=== PATIENT | male | born 1950 | race Caucasian/White ===

== ENCOUNTER 2024-03-14 10:31 | Inpatient (IN) | payer OTHER, SELFPAY ==
[2024-03-14] VITALS (18 sets, daily range): BP systolic 77–130; BP diastolic 45–71; BMI 20.5
--- NOTE | 2024-03-14 08:38 | W.PN.CARDCBS ---
Today's Communication / Plan
-
LHC/RHC today
CTS consult for CAB/AVR
Pulm consult- preop workup including PFTs
GI consult- UGIB/H. Pylori management
HF consult
Impression / Plan
-
This is the consultation summary.
See scanned consult note.
PCP: Estela Chi DO
CDY: Micheal Dasilva DO
HPI: 74 y/o white male, complex medical history including medical non compliance and lost to cardiology followup since 2020. PMH includes CAD with occlusive disease of RCA, LAD, mod LCx, referred for CABG but ultimately refused the surgery, chronic
systolic HFrEF 25-30% (previously recovered to 45-50% at last echo), moderate MR, , ICM, HTN, HLD, severe COPD/emphysema with parapneumonic effusion with PNA s/p VATS decortication (07/2023), persistent right sided consolidation, chronic tobacco
abuse.
Admitted to [facility] on 03/07 with acute on chronic anemia and melena. Initial hgb 6.9, transfused with Hgb up to 9.0 currently. EGD on 03/09 with large duodenal ulcer. GI approved use of aspirin for cardiac issues.
He also admits to chronic atypical angina, worse on exertion, as well as severe dyspnea, progressive over the last month. HS Troponins were elevated 155 but flat and had normal CPK levels. Echo on 03/08 with mod to sev decreased LVSF, EF 25-30%,
mild-mod MR, mod TR, mod but likely underestimated d/t dec LVEF, PG/MG /, JASEN 1.27cm2. Pt is now requesting CABG and would like to have workup.
His social situation is such that he has no license, no car, and gets around on an electric tricycle, has no friends/family for support or to help drive him to appointments/studies.
Transferred today for [facility], as well as inpatient CTS workup including Pulmonary consult for inpt PFTs as well as continued GI monitoring.
IMPRESSION/PLAN:
Severe Chronic CAD/Progressive atypical angina/Moderate MR/
had refused CABG in 2020, now requesting surgery
LHC/RHC today
consult CTS/Dr. Yañez for inpatient workup for CAB, +/- AVR
continue aspirin- OK per GI
will follow with Dr. Dasilva at the [facility] office
Chronic systolic HFrEF 25-30%/ICM
EF decreased from 45-50% over the last few years, with progressive valve disease
severe dyspnea certainly multifactorial but would continue max vilma GDMT
losartan 25mg/d, carvedilol 3.125/bid, furosemide 20/q48h, KCL 20/d
heart failure team consult
monitor I/O, lytes
would consider eventual ICD therapy if revascularization does not help EF
Severe COPD/Emphysema
complex pulmonary issues coupled with chronic tobacco abuse
cessation has been discussed
will need inpt PFTs and pulmonary workup prior to cardiac surgery
is not on O2 at this time but will continue minineb, MDI, supplemental O2 as needed
budesonide 0.5/MN BID, tiotropium 18mcg/d prn, albuterol MN prn
finished course of prednisone today, has mild leukocytosis but cultures have been negative, likely from CS
UGIB/Duodenal ulcers/acute on chronic anemia/melena
lowest Hgb 6.9- now up to 9.6 after 3u PRBC transfused
EGD with ulcers, biopsy + H. Pylori
OK for aspirin per GI at [facility]
will need GI consult for continued care/input as pt will need blood thinners, dapt, etc.
GI at [facility] has pt on quadruple therapy for 14 day course- protonix 40/bid, amoxicillin 1g Q12h, clarithromycin 500/bid and bismuth
will need outpt GI followup in 6 weeks and repeat stool antigen in 3-4 months to check for H. Pylori eradication
Dr. Rocio Ervin @[facility]
HTN- monitor trends on current therapy
HLD- check lipid profile, continue statin therapy with lipitor 40/d
BPH- continue tamsulosin
Progress Note - Cover Inspector
Subjective
Date of Service: March 14, 2024
[2024-03-14 14:16] LABS: ACT-LR - POC 173 Seconds (116-155)
--- NOTE | 2024-03-14 14:55 | CONSULT.CT ---
Consultation
-
Date/Time Consultation Requested: 03/14/24 1445
Date/Time Consultation Performed: 03/14/24 1500
Requesting Provider: Paulo Ortiz MD
Performing Provider: Flash HAMILTON for Dr. Yañez
Reason for Consultation: CABG/AVR eval
Patient History
Physicians
Family Physician: Estela Chi DO
Outpatient Professor Of Theatre: Dr. Leobardo Wright
Inpatient Professor Of Theatre: Paulo Ortiz
History of Present Illness
74-year-old male with past medical history significant for medical noncompliance and loss to cardiology follow-up since 2020 for CAD and occlusive RCA disease, LAD, and moderate left circumflex, chronic systolic heart failure with reduced ejection
fraction, moderate MR, AAS, ischemic cardiomyopathy, HTN, HLD, severe COPD/emphysema with parapneumonic effusion with pneumonia status post VATS decortication in 2022, persistent right-sided consolidation. He was referred for a CABG but ultimately
refused at the time.
Patient presented to [facility] on 03/07 with dizziness, acute on chronic anemia and melena. He was found to have a hemoglobin of 6.9 and was transfused and repeat hemoglobin went up to 9.0. At that time he had an EGD on 03/09 and a large
duodenal ulcer was found. Patient was admitted to ongoing chronic atypical angina that is worsened with exertion along with severe dyspnea over the last month. At [facility] high sensitive troponins were elevated. An echocardiogram showed
moderate to severely decreased ejection fraction with an EF of 25 to 30%, moderate MR, moderate TR, and moderate . Patient was then transferred to [facility] for a left heart cath and CABG evaluation.
Past Medical History
Past Medical History: BPH, COPD (emphysema), GERD, HTN, [place] and Valvular Disease
gastric ulcers/ UGIB/ H/Pylori
Past Surgical History
Past Surgical History: Orthopedic
VATs in 2022
Dental History
Multiple broken teeth and dental infections. Does not follow dentist regularly
Family History
Mother: at Age
Father: at Age (76) and Cause of (Cancer, [place]. )
Family Medical History: CAD and Cancer
Social History
Alcohol: Occasional
Drug: None
Tobacco: Smoker (1/2PPD)
Personal: Single
Living: Alone
Employment: Retired
Allergies
Allergy/AdvReac Type Severity Reaction Status Date / Time
No Known Allergies Allergy Unverified 03/14/24 12:00
Home Medications
�Medication �Instructions �Recorded �Confirmed �Type
atorvastatin 40 mg tablet 40 mg PO QPM #1 tab 01/14/21 03/14/24 Rx
carvedilol 3.125 mg tablet 3.125 mg PO BID 01/14/21 03/14/24 History
quetiapine 200 mg tablet 200 mg PO HS 01/14/21 03/14/24 History
albuterol sulfate 90 mcg/actuation 2 puff inhalation Q6H PRN wheezing 03/14/24 03/14/24 History
aerosol inhaler
aspirin 81 mg tablet 81 mg PO DAILY 03/14/24 03/14/24 History
tamsulosin 0.4 mg capsule 0.4 mg PO HS 03/14/24 03/14/24 History
tiotropium bromide 18 mcg capsule 1 cap inhalation DAILY 03/14/24 03/14/24 History
with inhalation device
Review of Systems
-
History Source: Patient
General: Reports Fatigue
Respiratory: Reports SOB and Cough
Cardiac: Reports Chest Pain, CAD, Known Vascular Disease and Edema
Abdomen/GI: Reports Abdominal Pain, Indigestion, Nausea, Vomiting and Black Stools
: Reports No Symptoms
Musculoskeletal: Reports Arthralgias and Joint Pain
Skin: Reports Itching
Neurological: Reports No Symptoms
Vascular: Reports No Symptoms
Physical Exam
Vital Signs
Temp 97.0 F 03/14/24 14:41
Temp route: Oral 03/14/24 14:41
Pulse 73 03/14/24 12:45
Resp Rate 12 03/14/24 12:45
Blood pressure 116/64 03/14/24 11:56
Blood pressure extremity used: Right upper arm 03/14/24 14:41
Position: Lying 03/14/24 14:41
MAP (cuff-Sergei Monitor) 82 03/14/24 11:56
SaO2 97 03/14/24 12:45
Oxygen Mode of Delivery Room air 03/14/24 14:41
Can the patient verbally communicate their pain? Yes 03/14/24 14:41
Actual Weight 66.5 kg 03/14/24 10:36
Body Mass Index (BMI) 20.5 03/14/24 10:36
Labs
Abnormal Lab Results
03/14/24
14:12
POC ACT Low Range 173 H
Exam
General: No Apparent Distress and Comfortable
HEENT: PERRLA
Respiratory: Clear
Cardiac: S1/S2 and Murmur
GI: Flat
Rectal: Deferred by Provider
Skin: Warm and Dry
Neuro: AO x 3
Lymph: No Lymphadenopathy
Psych: Calm
Assessment / Plan
-
74-year-old male with past medical history above presented to [facility] on 03/07 with anemia and melena. He was noted to have worsening angina, dyspnea, and elevated troponins and was taken to [facility] for CABG eval.
#CAD
#Moderate MR, TR, and
- Patient's case will be discussed with attending physician. Further details regarding intervention will be determined after attending physicians full evaluation
- Routine preoperative cardiothoracic surgery orders will be initiated.
- STS risk stratification score will be calculated after preoperative testing is complete
- Obtain TTE images from 03/08
#Emphysema
- Obtain PFTs
#Chronic systolic HFrEF 25-30%/ICM
-EF decreased from 45-50% over the last few years, with progressive valve disease
Data Reviewed
-
EKG: Tracing Personally Visualized and interpreted
Office Engineer: Report Reviewed by me
Labs: Labs Reviewed by me and Discussed with Physician
Old Records: Requested
--- NOTE | 2024-03-14 14:56 | ITS.CL.CATH ---
Reading Teacher - Catheterization
Cardiac Catheterization
Procedure Report:
RIGHT AND LEFT HEART CATHETERIZATION
Date of Procedure: March 14, 2024
Primary Care Physician: Dr. Christopher Chi
Primary Carton Forming Machine Adjuster: Dr. Devendra Castañeda
Procedures performed:
1: Coronary angiography
2: Left ventriculography
3: Right heart catheterization
INDICATION: The patient is a 74-year-old man with a past medical history significant for medical noncompliance, poor insight to his medical condition, ongoing heavy smoking, severe COPD status post VATS thoracotomy in July 2023 at [facility] for a loculated parapneumonic effusion, severe coronary artery disease with surgical obstructive disease by cardiac catheterization in January 2021 -at that time he was referred for CT surgical evaluation and adamantly refused to consider
surgical vascularization. He now is admitted with a GI bleed which ultimately was found to be caused by a duodenal ulcer to [facility]. He bled down to a hemoglobin under 7 g/dL and in spite of that did not rule in for a type II CA.
Repeat echo performed on March 08 showed a drop in LV systolic function to 25 to 30% with moderate tricuspid regurgitation, mild aortic valve stenosis, moderate aortic insufficiency and an estimated RV systolic pressure of 64 mmHg. Given his new LV
systolic dysfunction with known severe coronary artery disease by cardiac catheterization in 2020, he is referred for repeat right and left heart catheterization as he now says he would consider surgical intervention.
ACCESS: The patient was prepped and draped in usual sterile fashion. A 5 Russian sheath was placed in the left radial artery using the Seldinger over the wire technique. A 6 Russian sheath was then placed in the right common femoral vein using the
same technique. The right radial artery appears to be occluded as there is no pulse.
HEMODYNAMIC FINDINGS (mmHg):
RA(a,v,m): 16, 13, 12
RV(s/d,EDP): 56/12, 16
PA(s/d/m): 52/23, 35
PCWP(a,v,m): 24, 23, 19
LV(s/d,EDP): 115/12, 15
Ao(s/d,m): 109/55, 78
Oxygen Saturations (mg/dl):
PA: 58% on room air
LV: 91% on room air
Cardiac Output/Index (l/min / l/min/m2):
Estimated Declan Method: 4.6 / 2.5
VALVE HEMODYNAMICS:
Mean aortic valve gradient on pullback: 8 mmHg
ANGIOGRAPHIC FINDINGS:
Single-plane Left Ventriculography in AGUIAR Projection: Severe global LV systolic dysfunction with a visually estimated ejection fraction of 30 to 35%. No significant mitral regurgitation.
Coronary Angiography:
Dominance: Right
Left Main: Large-caliber, widely patent.
Left Anterior Descending: The left anterior descending artery is heavily calcified in the proximal position. There is a smooth 70 to 80% proximal stenosis followed by a subtotal occlusion after the takeoff of the second major diagonal branch. The
first diagonal branch is a medium caliber vessel that has an ostial 70% stenosis with moderate distal luminal irregularities and normal flow. This vessel has a 50% mid stenosis and appears too small to be a reasonable surgical target. There is
faint bridging left to left collaterals to the mid to distal LAD which also fills via right to left collaterals from the right conus branch. The second diagonal branch has a ostial 90% stenosis with distal flow and a vessel that may be a surgical
target.
Left Circumflex: The left circumflex is a relatively large caliber nondominant vessel that gives rise to 2 major obtuse marginal branches. These vessels have diffuse moderate luminal irregularity throughout. There is a smooth 40 to 50% proximal
circumflex stenosis followed by a smooth 40% before the OM1/OM 2 bifurcation. OM1 has a smooth 40% proximal stenosis and appears to be a good surgical target distally. OM 2 has diffuse 50 to 70% proximal disease with normal distal flow in a good
distal target.
Right Coronary: The right coronary was difficult to engage from the left radial approach. Ultimately a 5 Russian AL-1 was used to poorly engage and perform angiography. The right coronary artery has a long area of diffuse calcific 50% mid disease
tapering down to a 70% stenosis just after the acute margin takeoff. The distal vessel is patent and appears to be a small but reasonable distal surgical target.
Fluoroscopy Time (min): 22
Radiation Dose (mGy): 731
DAP (Gy.cm2): 84
Closure device: None. A TR band was applied for hemostasis at the left wrist. The femoral vein groin sheath will be pulled with manual pressure for hemostasis.
Complications: None.
ASSESSMENT:
1: Severe multivessel obstructive coronary disease. This appears fairly similar to prior angiography in 2020 when he was referred for surgical evaluation and refused surgical intervention.
2: Well compensated filling pressures with moderately elevated pulmonary pressures and preserved cardiac output and index.
3: Severe global LV systolic dysfunction with no significant mitral gravitation.
4: Mild aortic stenosis. This appears visually more severe on echocardiography with moderate aortic insufficiency however I do not think he clearly needs aortic valve intervention.
CONCLUSIONS and RECOMMENDATIONS:
1: CT surgical evaluation for CABG. He will need a pulmonary evaluation as well given his severe underlying lung disease and ongoing smoking.
2: Continue medical therapy for recent GI bleed with H. pylori positivity.
3: Medical therapy for hypertension, diffuse vascular disease, and depression.
4: Continue to encourage medical compliance and follow-up. He has been unable to follow-up with anyone other than his primary care provider in the past due to having a very poor social support system and no transportation. We will offer him
follow-up in [place] where he can ride his motorized tricycle for visits. This is what he has done inconsistently with his primary care provider. Case discussed at length with Dr. Pavan Yañez and Dr. Devendra Castañeda.
Javi Ortiz M.D.
Copy to: Dr. Christopher Chi
[2024-03-14] MEDS: NSS 1000 IV (14:58)
--- NOTE | 2024-03-14 15:22 | CON.PUL ---
Consultation
Consultation Request
Date/Time Consultation Requested: 03/14/2024 - 1500
Date/Time Consultation Performed: 03/14/2024 - 1518
Requesting Provider: Dr. Ortiz
Performing Provider: Dr. Abel
Reason for Consultation: Pulmonary clearance for CABG
Medical History
-
Chief Complaint: SOB
History of Present Illness:
74-year-old male tobacco smoker with a past medical history of COPD/emphysema, depression/bipolar disorder, hypertension, multivessel CAD (previously refused CABG), chronic HFrEF, BPH, WIYOT and TAA who presents as a transfer from outside hospital
([facility]) for left heart cath and evaluation for CABG. He was admitted to [facility] on 03/07/2024 with acute on chronic anemia and melena with initial Hb of 6.9 requiring transfusion. EGD done on 03/09 showed a large duodenal ulcer and GI approved use of ASA
for cardiac issues. Patient also endorsed worsening TRUONG over the last 1 month. Echo done on 03/08/2024 shows reduced LV systolic function with LVEF 25-30%, moderate , mild�moderate MR and moderate TR. Patient was transferred here to [place] [facility] for LHC and evaluation from CT surgery for CABG. Given his history of COPD with tobacco use disorder, pulmonary now consulted for optimization prior to operation as well as risk stratification.
When I saw the patient he was in bed, in no acute distress on room air breathing comfortably. He denies any home oxygen use. He says that he went to [facility] hospital recently due to black stools that he was having for several days. He was also short
of breath but this is chronic and it was not different, and it also was no different today. He does have a considerable amount of SOB, however, with activity. He seems to breathe relatively well at rest. He follows with pulmonary at [facility] via
[facility], with Dr. Wright. He is on Spiriva at home with prn albuterol, and is not sure if he takes any other inhalers as he is having difficulty remembering the names of his medications. He is not however a poor historian. He does endorse a
daily cough with thick, white phlegm, and is able to expectorate it without an issue usually. He denies any recent COPD exacerbations, but he was in the hospital in July 2023 due to pneumonia with a parapneumonic effusion requiring a VATS with
decortication. He currently denies headache, shortness of breath at rest, chest pain, abdominal pain, fevers or chills.
PMhx: History of COPD, history of alcohol use, history of collagenous colitis, tobacco abuse, depression, history of colonic polyps, right knee DJD, hypertension, CAD with multivessel disease (previously refused CABG), chronic HFrEF, chronic back
pain, history of kidney stones, BPH, anemia, hard of hearing, anxiety with history of bipolar disorder, history of self-harm in the past, AAA, history of pneumonia with parapneumonic effusion s/p VATS with decortication (07/2023)
PSHx: Back disc surgery, hernia repair, right knee reconstruction, bilateral bunion surgery, history of VATS with decortication (July 2023)
Past Medical History
Past Medical History: Other (Above as per HPI)
Past Surgical History: Other (Above as per HPI)
Social History
Tobacco: Smoker (1 PPD and has been smoking for past 60 years)
Alcohol: Former
Drug: None
Family History
Family History: Cancer (Father: Lung cancer)
Allergies / Home Medications
Allergies
Allergy/AdvReac Type Severity Reaction Status Date / Time
No Known Allergies Allergy Unverified 03/14/24 12:00
Home Medications
�Medication �Instructions �Recorded �Confirmed �Last Taken �Type
atorvastatin 40 mg tablet 40 mg PO QPM #1 tab 01/14/21 03/14/24 03/13/24 17:00 Rx
carvedilol 3.125 mg tablet 3.125 mg PO BID 01/14/21 03/14/24 03/06/24 21:00 History
quetiapine 200 mg tablet 200 mg PO HS 01/14/21 03/14/24 03/13/24 21:00 History
albuterol sulfate 90 mcg/actuation 2 puff inhalation Q6H PRN wheezing 03/14/24 03/14/24 Unknown History
aerosol inhaler
aspirin 81 mg tablet 81 mg PO DAILY 03/14/24 03/14/24 03/06/24 09:00 History
tamsulosin 0.4 mg capsule 0.4 mg PO HS 03/14/24 03/14/24 03/06/24 21:00 History
tiotropium bromide 18 mcg capsule 1 cap inhalation DAILY 03/14/24 03/14/24 Unknown History
with inhalation device
Review of Systems
-
History Source: Patient
All other systems: Negative unless noted (12 point ROS performed and is negative unless mentioned above.)
Vitals / Labs / Diagnostic Testing
Vital Signs
Temp Pulse Resp BP Pulse Ox
97.0 F 67 7 113/61 97
03/14/24 14:41 03/14/24 14:45 03/14/24 14:45 03/14/24 14:45 03/14/24 12:45
Diagnostic Testing:
Physical Exam
-
HEENT: Normocephalic and Anicteric
Cardiovascular: S1/S2, Peripheral Edema (+1 lower extremity edema bilaterally) and Other (Distant heart sounds)
Respiratory: Wheeze (negative), Rales (negative), Rhonchi (negative) and Other (Reduced breath sounds bilaterally)
GI: Soft, Non Distended, Non Tender and Normal Bowel Sounds
Neurology: AO x 3
Skin: Warm and Dry
General: Respiratory Distress (negative) and Comfortable
Assessment
-
Assessment: 74-year-old male tobacco smoker with a past medical history of COPD/emphysema, depression/bipolar disorder, hypertension, multivessel CAD (previously refused CABG), chronic HFrEF, BPH, WIYOT and TAA who presents as a transfer from outside
hospital ([facility]) for left heart cath and evaluation for CABG. He was admitted to [facility] on 03/07/2024 with acute on chronic anemia and melena with initial Hb of 6.9 requiring transfusion. EGD done on 03/09 showed a large duodenal ulcer and GI approved
use of ASA for cardiac issues. Patient also endorsed worsening TRUONG over the last 1 month. Echo done on 03/08/2024 shows reduced LV systolic function with LVEF 25-30%, moderate , mild�moderate MR and moderate TR. Patient was transferred here to
[facility] for LHC and evaluation from CT surgery for CABG. Given his history of COPD with tobacco use disorder, pulmonary now consulted for optimization prior to operation as well as risk stratification.
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
HFrEF, chronic back pain, history of kidney stones, BPH, anemia, hard of hearing, anxiety with history of bipolar disorder, history of self-harm in the past, AAA, history of pneumonia with parapneumonic effusion s/p VATS with decortication (07/2023)
Impression:
#Multivessel CAD
#Acute upper gastrointestinal hemorrhage due to duodenal ulcer (via EGD from [facility])
#Acute blood loss anemia due to above
#(+) H. pylori infection seen on biopsy during recent EGD
#History of COPD/emphysema with chronic cough
#Chronic HFrEF/ICM
#Tobacco use disorder
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
Plan:
- Apparently patient was on budesonide 0.5mg BID, Spiriva and albuterol as needed and finished a course of prednisone recently.
- Will continue with Spiriva + budesonide 0.5mg BID while he remains inpatient plus nebulized albuterol as needed --> on discharge can give trelegy vs Breztri, depending on affordability
- Trend Hb and transfuse if needed to keep Hb>8g/dL, plt>50k (given upcoming surgery)
- Check spirometry as part of pre-op CABG workup
- Maintain SpO2 >88-94% with supplemental O2 as needed
- Incentive spirometer encouraged
- Flutter valve for phlegm expectoration
- Although patient has significant pulmonary history and has significant dyspnea with activities, his shortness of breath is currently at his baseline and he is not currently having a COPD exacerbation. He remains at high risk for a high risk
procedure. ARISCAT score: 51 - he has a 42.1% risk of in-hospital post-op pulmonary complications (composite including respiratory failure, respiratory infection, pleural effusion, atelectasis, pneumothorax, bronchospasm, aspiration pneumonitis).
- Continue inhalers and on AM of procedure give pt an albuterol nebulized treatment. Would Tx with decadron 10mg IVP x1 pre-op as well. Use low tidal volume strategy with 4-6cc/kg of IBW, titrate Fio2 to maintain SpO2>88%, and maintain plateau
pressure <30. Early postoperative ambulation, as tolerated, with postoperative incentive spirometry use q1hr while awake.
- Replete electrolytes with K>4, Mg>2
- Maintain euglycemia with goal BG >100 and <180
- Continue ABx to treat H. pylori
- GI consulted - recs appreciated
- DVT ppx
Pulmonary service will continue to follow along.
Total time spent today was 55 minutes for this encounter. Time includes reviewing laboratory test/imaging results, reviewing pertinent medical records, obtaining and reviewing medical history, performing an appropriate exam, ordering medications,
tests and procedures. Time also includes documentation of this encounter, coordinating patient care and communicating with other healthcare professionals. Total time does not include separately billed tests performed on this date of service.
--- NOTE | 2024-03-14 15:27 | HPS.HSE ---
Family Physician
-
Family Physician: Estela Chi DO
Chief Complaint
-
Patient is being transferred for cardiac catheterization.
History of Present Illness
Patient is a 74 years old male with history of coronary artery disease, ischemic cardiomyopathy, advanced COPD known medical noncompliance who was admitted to [facility] on 615 with acute on chronic anemia and melena. Initial hemoglobin was
recorded at 6.9. Patient was transfused 3 units of packed red blood cells with improvement of hemoglobin around 9. He underwent upper endoscopy on 03/09 with findings of a large duodenal ulcer. Patient was placed on IV PPI and antibiotic therapy
for H. pylori and was approved to be initiated on aspirin for cardiac issues.
Upon admission patient was found to have atypical angina when he complains of worsening of exertional dyspnea and chest pain.
Patient with extensive cardiac history including multivessel coronary artery disease with catheterization in 2020, when declined offered coronary artery bypass graft.
Recurrent hospitalization at [facility] patient was seen by cardiology. Workup was done with concern for acute coronary syndrome versus atypical angina, possibly worsening of his symptoms in the settings of acute anemia. At that time
cardiac markers were negative. With GI clearance patient was placed on aspirin and transferred to [facility] for cardiac authorization
Medical History
Past Medical History
Past Medical History: Reports CAD, CHF and COPD
Past Surgical History: Reports Other (Cardiac cath)
Social History
Tobacco: Smoker
Alcohol: None
Drug: None
Personal: Single
Living: Alone
Employment: Disabled
Family History
Family History: Not pertinent
Allergies / Home Medications
Allergies reflects when Allergies were last updated in [employer].
Home Medications with original date entered in [employer]
Allergy/Medication List:
Allergies
Allergy/AdvReac Type Severity Reaction Status Date / Time
No Known Allergies Allergy Unverified 03/14/24 12:00
Home Medications
atorvastatin 40 mg tablet 40 mg PO QPM #1 tab 01/14/21
carvedilol 3.125 mg tablet 3.125 mg PO BID 01/14/21
quetiapine 200 mg tablet 200 mg PO HS 01/14/21
albuterol sulfate 90 mcg/actuation aerosol inhaler 2 puff inhalation Q6H PRN wheezing 03/14/24
aspirin 81 mg tablet 81 mg PO DAILY 03/14/24
tamsulosin 0.4 mg capsule 0.4 mg PO HS 03/14/24
tiotropium bromide 18 mcg capsule with inhalation device 1 cap inhalation DAILY 03/14/24
Review of Systems
-
A 12 point ROS was completed and negative except as noted: Yes
Physical Exam
Vital Signs
Vital Signs
Temp Pulse Resp BP Pulse Ox
97.0 F 67 7 113/61 97
03/14/24 14:41 03/14/24 14:45 03/14/24 14:45 03/14/24 14:45 03/14/24 12:45
Physical Exam
General: Well Developed, Well Nourished and No Apparent Distress
HEENT: NormoCephalic, Moist mucous membranes and Atraumatic
Respiratory: Clear
Cardiac: S1/S2 and Regular Rhythm; No Murmur or Rub
GI: Soft, Non Tender, Non Distended and Normal Bowel Sounds; No Organomegaly
Rectal: Deferred by Provider
Musculoskeletal: No Clubbing, No Cyanosis and No Edema
Skin: No Rash
Neuro: Awake, Alert, Oriented, AO x 3 and Nonfocal/grossly intact
Impression/Plan
-
IMPRESSION:
Multivessel CAD
Ischemic cardiomyopathy
Chronic CHF reduced EF
Severe COPD/emphysema
Tobacco use disorder, ongoing
Upper gastrointestinal hemorrhage secondary to duodenal ulcer
Acute blood loss anemia requiring transfusion
Essential hypertension
Dyslipidemia
BPH.
Depression
PLAN:
CAD.
Concern for progressive angina.
Catheterization 2021 with multivessel disease.
Ongoing workup with negative cardiac markers
Transferred to [facility] for cardiac catheterization
Cardiac cath 03/14:
1: Severe multivessel obstructive coronary disease. This appears fairly similar to prior angiography in 2020 when he was referred for surgical evaluation and refused surgical intervention.
2: Well compensated filling pressures with moderately elevated pulmonary pressures and preserved cardiac output and index.
3: Severe global LV systolic dysfunction with no significant mitral gravitation.
4: Mild aortic stenosis. This appears visually more severe on echocardiography with moderate aortic insufficiency however I do not think he clearly needs aortic valve intervention.
CT surgery evaluation for CABG.
Continue medical therapy including aspirin, statin, Coreg
Chronic systolic CHF with LVEF of 25 to 30%/ischemic cardiomyopathy
Noted with decreased EF from 45-50%
Medical assessment and cath showed no evidence for volume overload
Continue medical therapy/GDMT
Continue oral diuresis with potassium supplements.
Continue Coreg, losartan.
Hypertension will monitor blood pressure on above-mentioned regimen.
COPD/emphysema
Exam with coarse rhonchi but no wheezing
No clinical evidence of exacerbation
Will add inhaled steroids/Pulmicort
Continue DuoNebs as required
Pulmonology evaluation for surgical clearance/PFT requested
Upper GI bleed with acute blood loss anemia.
Hemoglobin reported as low 6.9 upon admission to [facility]
Status post 3 units of packed red cells transfused with hemoglobin at ninth with so far no evidence of acute blood loss
EGD with duodenal ulcer.
H. pylori testing pending
Continue PPI.
Amoxicillin/Biaxin x 14 days with GI follow-up repeat endoscopy and stool antigen testing in 3 to 6 weeks
Dyslipidemia
Update lipid profile
Continue statin
BPH continue Flomax
Monitor for retention.
Depression.
Continue quetiapine
--- NOTE | 2024-03-14 16:05 | PTCARENOTE ---
Addendum entered by Emerson Ordonez RN 03/14/24 18:08:
Patient received from analyst microbiology lab. ABRAHAM SPENCER, oriented to unit.
Original Note:
Patient recieved
[2024-03-14] MEDS: LIPITOR 40 MG PO (17:50)
[2024-03-14] MEDS: LOVENOX 40 MG SC (17:50)
[2024-03-14] MEDS: AMOXIL 1000 MG PO (17:50)
[2024-03-14] MEDS: PULMICORT 0.5 MG INH (19:45)
[2024-03-14] MEDS: COREG 3.125 MG PO (20:53)
[2024-03-14] MEDS: BIAXIN 500 MG PO (20:53)
[2024-03-14] MEDS: FLOMAX 0.400000000000000022 MG PO (20:54)
[2024-03-14] MEDS: PROTONIX 40 MG PO (20:54)
[2024-03-14] MEDS: SEROQUEL 200 MG PO (21:54)
[2024-03-15] VITALS (10 sets, daily range): BP systolic 86–119; BP diastolic 52–61
[2024-03-15] MEDS: ProAmatine 5 MG PO (00:02)
--- NOTE | 2024-03-15 00:11 | PTCARENOTE ---
Patients manual BP 82/50, 78, pulse ox 94% on RA. 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 Patient states he feels fine, only dizzy when he gets up. Advised to call for assistance, patient agreeable.
--- NOTE | 2024-03-15 00:40 | W.PN.UPDATE ---
Update Note
Progress Note Update
Reported by the nursing staff that the patient is hypotensive 82/50, hr 78 after receiving the night dose of Coreg, asymptomatic. One time order of midodrine 5mg was placed.
[2024-03-15] MEDS: AMOXIL 1000 MG PO ×2 (04:47→15:55)
[2024-03-15 05:55] LABS: B.E. 3.9 mmol/L; HCO3 27.6 mmol/L (21-28); O2 Saturation % 95.5 % (94-98); PCO2 37 mmHg (35-48); PO2 69 mmHg (83-108); pH 7.48 (7.35-7.45)
[2024-03-15] MEDS: PULMICORT 0.5 MG INH ×2 (07:28→20:08)
[2024-03-15] MEDS: SPIRIVA RESPIMAT 2.5 MCG 2 PUFF INH (07:32)
[2024-03-15 08:01] LABS: Hematocrit 31.4 % (39.0-52.0); Hemoglobin 10.4 g/dL (13.0-18.0); Mean Corp Hgb Conc. 33.1 g/dL (33.0-37.0); Mean Corpuscular Hgb 28.7 pg (27.0-31.0); Mean Corpuscular Volume 86.7 fL (80.0-94.0); Mean Platelet Volume 9.6 fL (7.4-10.4); Platelet Count 366 10^3/uL (130-400); Red Blood Cell Count 3.62 10^6/uL (4.70-6.10); Red Cell Dist. Width 16.5 % (11.5-14.5); White Blood Cell Count 16.4 10^3/uL (4.8-10.8)
[2024-03-15 08:14] LABS: INR 1.06; PT 13.8 Sec (11.4-14.6)
[2024-03-15 08:15] LABS: APTT 26.7 Sec (23.4-35.0)
[2024-03-15 08:21] LABS: ALT (SGPT) 34 U/L (0-50); AST (SGOT) 21 U/L (17-59); Albumin 2.8 g/dl (3.5-5.0); Alkaline Phosphatase 70 U/L (38-126); Blood Urea Nitrogen 31 mg/dl (9-20); Calcium 8.5 mg/dl (8.4-10.2); Carbon Dioxide 23 mmol/L (22-30); Chloride 103 mmol/L (98-107); Direct Bilirubin 0.4 mg/dl (0.0-0.4); Estimated Creatinine Clearance 74 ml/min; Glucose 96 mg/dl (70-99); HDL Cholesterol 60 mg/dl; LDL Cholesterol, Calculated 46 mg/dl; Potassium 4.5 mmol/L (3.5-5.1); Sodium 134 mmol/L (135-145); Total Bilirubin 0.5 mg/dl (0.2-1.3); Total Cholesterol 121 mg/dl (50-199); Total Protein 5.1 g/dl (6.3-8.2); Triglyceride 77 mg/dl (10-149); Very Low Density Lipoprotein 15 mg/dl (0-30); eGFR > 60.00
[2024-03-15 09:34] LABS: Glycohemoglobin (HgbA1c) 5.7 % (4.0-5.6)
[2024-03-15] MEDS: PROTONIX 40 MG PO ×2 (11:03→19:18)
[2024-03-15] MEDS: KCL 20 MEQ PO (11:03)
[2024-03-15] MEDS: BIAXIN 500 MG PO ×2 (11:03→20:53)
[2024-03-15] MEDS: COREG 3.125 MG PO ×2 (11:04→19:18)
[2024-03-15] MEDS: ASPIR LOW (ENTERIC COATED) 81 MG PO (11:04)
[2024-03-15] MEDS: COZAAR 25 MG PO (11:04)
[2024-03-15] MEDS: LASIX 20 MG PO (11:04)
[2024-03-15 13:26] LABS: NT-proBNP 7460 pg/ml; Troponin I 0.111 ng/ml
--- NOTE | 2024-03-15 13:33 | PTCARENOTE ---
Lab called with critical lab TROP 0.111, MD Norton notified
--- NOTE | 2024-03-15 14:05 | W.PN.CARDCBS ---
Addendum entered and electronically signed by Leobardo Calero MD 03/15/24 14:56:
74-year-old man with known extensive CAD who previously refused CABG in 2020, recently admitted to [place] with hemoglobin of 6.5 related to GI bleed from duodenal ulcer and found to have an EF of 25 to 30% with moderate aortic stenosis and mild
to moderate mitral regurgitation. Cardiac catheterization March 14 notable for normal left main, 80% proximal LAD, with mid LAD occlusion and D2 with 80% stenosis, 50% proximal circumflex, 40% OM1 and OM 2 with 50% and 80% mid RCA. Normal IFR of
circumflex system. No new complaints. Back from PFTs, FEV1 is 0.95 with FEV1/FVC 0.45
PMH/PSH/FH/SH: Reviewed, inadequate social support
Allergies none
Outpatient meds: Reviewed
Current meds: Subcu Lovenox, aspirin 81 mg a day, pantoprazole, atorvastatin 40 mg daily, carvedilol 3.125 mg twice daily, tamsulosin 0.4 mg daily, losartan 25 mg a day, furosemide 20 mg every 48 hours, potassium 20 mill equivalents daily,
Pulmicort, amoxicillin, Biaxin, nicotine patch, Spiriva, iron
Review of systems: Negative except as above
119/61, pulse 75, respiratory 17, sats 94%, afebrile, body habitus of COPD, no acute distress, somewhat irascible, head neck exam unremarkable, lungs with diminished breath sounds, regular rate and rhythm, soft carotid bruits, aortic stenosis
murmur, abdomen benign extremities without edema distal pulses diminished
Chest CT ascending aorta is 4.2 cm, 1.4 cm mediastinal lymph node, probable small pleural effusions, compression fracture, suspected right lower lobe and right middle lobe pneumonia
White count 16.4, hemoglobin 10.4, 7.4 /69/28, BUN/creatinine 31 and 0.86 potassium 4.5, LDL 46
EKG sinus rhythm, poor R wave progression
Impression:
Admitted [facility] with anemia and melena 03/07/24, peptic ulcer disease with duodenal ulcer, hemoglobin 6 point
Ischemic cardiomyopathy
Moderate aortic stenosis
CAD
previously diagnosed MV CAD, patient declined CABG 2020
severe MV CAD that is overall similar to 2020 by cath 03/14/24ICM EF 25-30% by echo at [facility] 03/08/24
Mild /mod AI
UGIB
s/p 3 units PRBCs, EGD with large duodenal ulcer at [facility] 03/09/24Severe COPD and emphysema
COPD/smoker
s/p VATS decortication 07/2023
Hypercholesterolemia
Echo 03/08/24: [facility] study, EF 25-30%, mild-mod MR, mod TR, mod but likely underestimated d/t dec LVEF, PG/MG 12/07, JASEN 1.27cm2
Plan:
He appears stable at the moment despite three-vessel disease, aortic stenosis, LV dysfunction and COPD.
Continue preoperative assessment. FEV1 is slightly under 1 L, hopefully this will not preclude surgery.
No medication changes at present.
Original Note:
Today's Communication / Plan
-
Trying to move to IVU
Ongoing pre-op eval from CT surgery team
Hgb stable
Volume status appears stable
Impression / Plan
-
PCP: Estela Chi, DO
Cardiology: Micheal Dasilva DO
IMPRESSION/PLAN:
Transferred from [facility] to for cath 03/14/24
Admitted to [facility] with anemia and melena 03/07/24
CAD
previously diagnosed MV CAD, patient declined CABG 2020
severe MV CAD that is overall similar to 2020 by cath 03/14/24
ICM EF 25-30% by echo at [facility] 03/08/24
Mild /mod AI
UGIB
s/p 3 units PRBCs, EGD with large duodenal ulcer at [facility] 03/09/24
Severe COPD and emphysema
Smoker
s/p VATS decortication 07/2023
Echo 03/08/24: [facility] study, EF 25-30%, mild-mod MR, mod TR, mod but likely underestimated d/t dec LVEF, PG/MG 19/9, JASEN 1.27cm2
Plan:
-Patient was admitted to [facility] 03/07/24 with melanotic stools and Hgb as low as 6.9. He was given 3 units PRBCs. He had a large duodenal ulcer on EGD. Patient with h/o MV CAD and he declined offer of CABG in 2020. While in [facility] he complained of
increased TRUONG, but Troponin and echo stable. Patient transferred to 03/14/24 for cath. He had cardiac cath 03/14/24 that again showed MV CAD and patient now says he wants CABG. CT surgery evaluating patient.
-Hgb as low as 6.9 at [facility] prior to 3 units PRBCs. Hgb stable at 10.4 on 03/15/24
-Patient is ordered amoxicillin 1000 mg q 12 hours and clarithromycin 500 mg BID plus Protonix 40 mg BID presumably this was started at [facility] for gastric ulcer. Will need outpatient GI followup at [facility] with Dr. Rocio Ervin in 6 weeks and repeat stool
antigen in 3-4 months to check for H. Pylori eradication
-Cont aspirin 81 mg daily
-CT surgery team has seen patient and ordered routine pre-operative orders. Patient completed PFTs, orthopantogram and CT chest in the last 24 hours
-Patient was admitted to due to no IVU beds, will attempt to move patient to IVU on 03/15/24.
-PCWP 19 and CI 2.5 at cath 03/14/24. [facility] dose of Lasix 20 mg every 48 hours has been continued.
-EF 25% which is apparently chronic. GDMT includes outpatient dose of Coreg 3.125 mg BID plus newly started losartan 25 mg daily.
-Patient smoking just prior to admission. PFTs pending. Patient was started on prednisone at [facility].
-His social situation is such that he has no license, no car, and gets around on an electric tricycle, has no friends/family for support or to help drive him to appointments/studies.
Progress Note - Quality Improvement Coordinator
Subjective
Date of Service: March 15, 2024
No chest pain
Objective
Labs:
03/15/24 07:47
03/15/24 07:47
Labs
Hgb 10.4 g/dL (13.0-18.0) L 03/15/24 07:47
Hct 31.4 % (39.0-52.0) L 03/15/24 07:47
Plt Count 366 10^3/uL (130-400) 03/15/24 07:47
PT 13.8 Sec (11.4-14.6) 03/15/24 07:47
INR 1.06 03/15/24 07:47
APTT 26.7 Sec (23.4-35.0) 03/15/24 07:47
Sodium 134 mmol/L (135-145) L 03/15/24 07:47
Potassium 4.5 mmol/L (3.5-5.1) 03/15/24 07:47
BUN 31 mg/dl (9-20) H 03/15/24 07:47
Creatinine 0.8 mg/dL (0.7-1.3) 03/15/24 07:47
Glucose 96 mg/dl (70-99) 03/15/24 07:47
Troponins
03/15/24
12:39
Troponin I 0.111 H*
Vital Signs and I&O:
Vital Signs
Temp Pulse Resp BP Pulse Ox
97.7 F 75 17 119/61 94
03/15/24 11:36 03/15/24 11:36 03/15/24 11:36 03/15/24 11:36 03/15/24 11:36
Vital Signs
Temp Pulse Resp BP Pulse Ox
97.7 F 75 17 119/61 94
03/15/24 11:36 03/15/24 11:36 03/15/24 11:36 03/15/24 11:36 03/15/24 11:36
Intake & Output
03/13/24 03/14/24 03/15/24 03/16/24
06:59 06:59 06:59 06:59
Intake Total 1000 / 1000
Output Total 300 / 600 300 / 300
Balance 700 / 400 -300 / -300
Physical Exam
Physical Exam
GEN: NAD, AAOx3
HEENT: EOMI
LUNGS: No audible wheeze
CV: SR on tele
ABD: ND
EXT: No edema B/L
NEURO: Gross non-focal
SKIN: No rash
--- NOTE | 2024-03-15 14:50 | W.PN.PUL3 ---
Today's Communication / Plan
-
Continue Spiriva with budesonide 0.5mg BID
Up OOB as tolerated
Trend Hb
His CT Chest today shows RLL consolidation - he is not having pneumonia symptoms - I will check a procal for trending purposes; if pt spikes fever, then start Abx; or if procal >1 then consider starting Abx
Being transferred to IVU for further care; further evaluation by CT surgery to decide if patient candidate for surgery versus continue with medical treatment
Pulmonary service will continue to briefly follow along. He will follow up with his pulmonary doctors at [facility] ([facility])
Assessment
-
Assessment: 74-year-old male tobacco smoker with a past medical history of COPD/emphysema, depression/bipolar disorder, hypertension, multivessel CAD (previously refused CABG), chronic HFrEF, BPH, [place] and TAA who presents as a transfer from outside
hospital ([facility]) for left heart cath and evaluation for CABG. He was admitted to [facility] on 03/07/2024 with acute on chronic anemia and melena with initial Hb of 6.9 requiring transfusion. EGD done on 03/09 showed a large duodenal ulcer and GI approved
use of ASA for cardiac issues. Patient also endorsed worsening TRUONG over the last 1 month. Echo done on 03/08/2024 shows reduced LV systolic function with LVEF 25-30%, moderate , mild�moderate MR and moderate TR. Patient was transferred here to
[facility] for LHC and evaluation from CT surgery for CABG. Given his history of COPD with tobacco use disorder, pulmonary now consulted for optimization prior to operation as well as risk stratification.
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
HFrEF, chronic back pain, history of kidney stones, BPH, anemia, hard of hearing, anxiety with history of bipolar disorder, history of self-harm in the past, AAA, history of pneumonia with parapneumonic effusion s/p VATS with decortication (07/2023)
Impression:
#Multivessel CAD
#Acute upper gastrointestinal hemorrhage due to duodenal ulcer (via EGD from [facility])
#Acute blood loss anemia due to above
#(+) H. pylori infection seen on biopsy during recent EGD
#Severe-very severe COPD/emphysema with chronic cough
#Chronic HFrEF/ICM
#Restrictive lung defect (T%; VC: 65% via PFT from today)
#Tobacco use disorder
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
Plan:
-Spirometry today shows a FEV1 of 0.95 L / 30% predicted, which is a severe/very severe obstructive lung defect; there is also a moderate restrictive lung defect seen.
- Apparently patient was on budesonide 0.5mg BID, Spiriva and albuterol as needed and finished a course of prednisone recently.
- Continue with Spiriva + budesonide 0.5mg BID while he remains inpatient plus nebulized albuterol as needed --> on discharge can give trelegy vs Breztri, depending on affordability
- Trend Hb and transfuse if needed to keep Hb>8g/dL, plt>50k (given upcoming surgery)
- Maintain SpO2 >88-94% with supplemental O2 as needed
- Incentive spirometer encouraged
- Flutter valve for phlegm expectoration
- Although patient has significant pulmonary history and has significant dyspnea with activities, his shortness of breath is currently at his baseline and he is not currently having a COPD exacerbation. He remains at high risk for a high risk
procedure. ARISCAT score: 51 - he has a 42.1% risk of in-hospital post-op pulmonary complications (composite including respiratory failure, respiratory infection, pleural effusion, atelectasis, pneumothorax, bronchospasm, aspiration pneumonitis).
- Continue inhalers and on AM of procedure give pt an albuterol nebulized treatment. Would Tx with decadron 10mg IVP x1 pre-op as well. Use low tidal volume strategy with 4-6cc/kg of IBW, titrate Fio2 to maintain SpO2>88%, and maintain plateau
pressure <30. Early postoperative ambulation, as tolerated, with postoperative incentive spirometry use q1hr while awake.
- Replete electrolytes with K>4, Mg>2
- Maintain euglycemia with goal BG >100 and <180
- Continue ABx to treat H. pylori
- GI consulted - recs appreciated
- DVT ppx
Pulmonary service will continue to follow along. Patient is being moved to the IVU today. Further evaluation by cardiothoracic surgery to see if patient will obtain surgery versus being treated medically.
Total time spent today was 35 minutes for this encounter. Time includes reviewing laboratory test/imaging results, reviewing pertinent medical records, obtaining and reviewing medical history, performing an appropriate exam, ordering medications,
tests and procedures. Time also includes documentation of this encounter, coordinating patient care and communicating with other healthcare professionals. Total time does not include separately billed tests performed on this date of service.
Data:
CT Chest 03-15-2024:
Mild aneurysmal dilatation of the ascending thoracic aorta at approximately 4.2 cm. Prominent atherosclerotic calcifications throughout the thoracic aorta most prominently involving the aortic arch and descending thoracic aorta.
Large dense area of consolidation with air bronchograms in the right lower lobe and smaller area in the right middle lobe suspicious for pneumonia.
Approximate 1.4 cm nonspecific superior precarinal mediastinal lymph node. Mireille significantly limited without intravenous contrast.
Subjective Data
-
Date of Service:
Date of Service: March 15, 2024
Chief Complaint: Pulmonary Follow Up
Subjective:
Patient seen today. Spirometry performed today showing severe�very severe obstructive lung defect. Currently on room air breathing comfortably with SpO2 94%. No acute events reported from overnight. He denies chest pain, fevers or chills.
Review of Systems
General: Other (Negative unless mentioned above)
Objective Data
Data Reviewed
Vital Signs / I&O / Oxygen:
Vital Signs
Temp Pulse Resp BP Pulse Ox
98.0 F 75 18 108/56 93
03/15/24 19:07 03/15/24 20:09 03/15/24 20:09 03/15/24 18:24 03/15/24 20:09
Intake and Output
03/14/24 03/15/24 03/16/24
06:59 06:59 06:59
Intake Total 1000 / 1000
Output Total 300 / 600 1900 / 1900
Balance 700 / 400 -1900 / -1900
SaO2 93
Physical Exam
General: Respiratory Distress (negative) and Comfortable
HEENT: Normocephalic and Anicteric
Cardiovascular: S1-S2, Peripheral Edema (+1 lower extremity edema bilaterally) and Other (Distant heart sounds)
Respiratory: Wheeze (negative), Crackles (negative), Rhonchi (negative) and Other (Reduced breath sounds bilaterally)
GI: Soft, Non Distended, Non Tender and Normal Bowel Sounds
Neurology: Awake and Alert
Skin: Warm, Dry and Cyanosis (negative)
Labs/Micro/Reports
Lab Data
03/15/24 07:47
03/15/24 07:47
Laboratory Results
03/15/24 03/15/24
05:47 07:47
PT 13.8
INR 1.06
APTT 26.7
pH 7.48 H
pCO2 37
pO2 69 L
HCO3 27.6
O2 Delivery Level
--- NOTE | 2024-03-15 14:53 | W.PN.UPDATE ---
Update Note
Progress Note Update
CARDIAC SURGERY ATTENDING:
Mr. Car Garcia is a 74-year-old gentleman with a complex medical history including COPD/emphysema with active smoking, depression/BPD, multivessel CAD (previously refused CABG), chronic HFrEF (25 to 30%), valvular heart disease including
moderate MR, moderate TR, and [id number] , prior empyema/parapneumonic effusion status post right-sided VATS, recent GI bleed from duodenal ulcer with hemoglobin down to 6.9, prior gastric ulcers, GERD, poor dentition, and history of medical
noncompliance.
He presented to [facility] on 03/07 secondary to this recent GI bleed from his large duodenal ulcer he had ongoing chronic atypical angina and severe dyspnea. He was transplanted to for repeat left heart catheterization and consideration for possible
CABG.
On 03/14/2024, the patient underwent cardiac catheterization that demonstrated severe multivessel obstructive coronary disease that appeared fairly similar to his prior angiography from 2020 when he was originally referred for surgical intervention
and refused. His filling pressures were well compensated with moderately elevated pulmonary pressures with preserved CO/CI. He had severe global LV dysfunction.
His preoperative workup was completed and his STS risk calculated. His surgical mortality risk is of prohibitive level at 13.1% with a morbidity risk of 45%. It is my belief that these numbers are underestimated. I would advocate for continued
medical therapy for his CAD. His case was discussed in multidisciplinary fashion and the consensus was reached. I discussed with the patient's the importance of medical compliance with his medical therapy as directed.
Thank you for the opportunity to participate in the care of this patient.
Please call with any questions or concerns.
Ye Yañez MD
[phone]
--- NOTE | 2024-03-15 15:22 | CM ---
Alert awake oriented patient who lives alone in an apartment with 0 steps to enter.He is independent in all activities of daily living.He does not drive. He has a cane and electric scooter.Offered VN he requested [facility] referral placed in care
port.
[facility] HX/ No VN hx
Pharmacy [facility]
PCP Dr Palacios
PLAN Home with [facility] if accepted
[2024-03-15] MEDS: LOVENOX 40 MG SC (18:03)
[2024-03-15] MEDS: LIPITOR 40 MG PO (18:03)
--- NOTE | 2024-03-15 18:14 | PTCARENOTE ---
Pt transferred via wheelchair from 4th floor. OOB with one assist and reluctant use of walker. He denies discomfort. Breath sounds coarse throughout with moist cough. Telemetry shows sinus rhythm with PAC's. Plan for medical treatment of his CAD.
--- NOTE | 2024-03-15 18:33 | W.PN.HOSP.TC ---
Today's Communication/Plan
-
Continue GDMT for CAD/ischemic cardiomyopathy.
Increase activity with physical therapy evaluation
Discharge planing.
Assessment / Plan
Assessment / Plan
Impression/Plan
-
IMPRESSION:
Multivessel CAD
Ischemic cardiomyopathy
Chronic CHF reduced EF
Severe COPD/emphysema
Tobacco use disorder, ongoing
Upper gastrointestinal hemorrhage secondary to duodenal ulcer
Acute blood loss anemia requiring transfusion
Essential hypertension
Dyslipidemia
BPH.
Depression
PLAN:
CAD.
Concern for progressive angina.
Catheterization 2020 with multivessel disease.
Ongoing workup with negative cardiac markers
Transferred to [facility] for cardiac catheterization
Cardiac cath 03/14:
1: Severe multivessel obstructive coronary disease. This appears fairly similar to prior angiography in 2020 when he was referred for surgical evaluation and refused surgical intervention.
2: Well compensated filling pressures with moderately elevated pulmonary pressures and preserved cardiac output and index.
3: Severe global LV systolic dysfunction with no significant mitral gravitation.
4: Mild aortic stenosis. This appears visually more severe on echocardiography with moderate aortic insufficiency however I do not think he clearly needs aortic valve intervention.
CT surgery consultation appreciated. Patient found to be high risk for bypass procedure.
Plan is for optimization of medical therapy including aspirin, statin, Coreg
Chronic systolic CHF with LVEF of 25 to 30%/ischemic cardiomyopathy
Noted with decreased EF from 45-50%
Medical assessment and cath showed no evidence for volume overload
Continue medical therapy/GDMT
Continue oral diuresis with potassium supplements.
Continue Coreg, losartan.
Hypertension will monitor blood pressure on above-mentioned regimen.
COPD/emphysema
Chronic right lower lobe consolidation.
Noted recent workup at [facility] with no evidence of acute infection.
Exam with coarse rhonchi but no wheezing
No clinical evidence of exacerbation
Will add inhaled steroids/Pulmicort
Continue DuoNebs as required
Pulmonology evaluation for surgical clearance/PFT requested
Upper GI bleed with acute blood loss anemia.
Hemoglobin reported as low 6.9 upon admission to [facility]
Status post 3 units of packed red cells transfused with hemoglobin at ninth with so far no evidence of acute blood loss
EGD with duodenal ulcer.
H. pylori testing pending
Continue PPI.
Amoxicillin/Biaxin x 14 days with GI follow-up repeat endoscopy and stool antigen testing in 3 to 6 weeks
Dyslipidemia
Update lipid profile
Continue statin
BPH continue Flomax
Monitor for retention.
Depression.
Continue quetiapine
Anticipated Discharge: 24 - 48 hours
Subjective/Interval History
-
Date of Service: March 15, 2024
Objective Data
-
Labs:
Laboratory Results
03/15/24
07:47
WBC 16.4 H
Hgb 10.4 L
Hct 31.4 L
Plt Count 366
PT 13.8
INR 1.06
APTT 26.7
Sodium 134 L
Potassium 4.5
Chloride 103
Carbon Dioxide 23
BUN 31 H
Creatinine 0.8
Glucose 96
Calcium 8.5
Total Bilirubin 0.5
AST 21
ALT 34
Alkaline Phosphatase 70
Vital Signs:
Vital Signs
Temp Pulse Resp BP Pulse Ox
97.9 F 80 24 108/60 95
03/15/24 17:52 03/15/24 17:45 03/15/24 17:52 03/15/24 17:42 03/15/24 17:54
I&O
03/14/24 03/15/24 03/16/24
06:59 06:59 06:59
Intake Total 1000 / 1000
Output Total 300 / 600 1700 / 1700
Balance 700 / 400 -1700 / -1700
Physical Exam
-
General: Well Developed and No Apparent Distress
HEENT: Normocephalic, Atraumatic and Moist Mucous Membranes
Respiratory: Clear to Auscultation
Cardiac: Regular Rhythm and S1/S2; Negative Murmur, Rub or Gallop
GI: Soft, Nontender, Nondistended and Normal Bowel Sounds; Negative Organomegaly
Rectal: Deferred by Provider
Musculoskeletal: No Clubbing, No Cyanosis and No Edema
Skin: Negative Rash
Neuro: Nonfocal/Grossly Intact
[2024-03-15] MEDS: SENOKOT-S 1 TABLET PO (19:18)
[2024-03-15] MEDS: FLOMAX 0.400000000000000022 MG PO (22:10)
[2024-03-15] MEDS: SEROQUEL 200 MG PO (22:11)
--- NOTE | 2024-03-15 23:27 | PTCARENOTE ---
Pt rec'd at change of shift ambulating to bathroom with pct; passed small bm. gait steady with rolling walker. Lungs coarse with productive cough thick white sputum. Sinus on telemetry. right femoral and left radial sites intact. drsg removed
cleansed with nss and left hiram. call alston within reach.
[2024-03-16] VITALS (8 sets, daily range): BP systolic 90–120; BP diastolic 49–57; PULSE 79–89; O2SAT 91; BMI 19.8
[2024-03-16] MEDS: AMOXIL 1000 MG PO ×2 (05:18→15:38)
--- NOTE | 2024-03-16 05:26 | PTCARENOTE ---
Pt reports sleeping well during the night. OOB to bathroom to have a bm this morning. wt, blood work and vs obtained. Pt with moist productive cough clear white.
[2024-03-16 05:32] LABS: Hematocrit 34.3 % (39.0-52.0); Hemoglobin 11.3 g/dL (13.0-18.0); Mean Corp Hgb Conc. 32.9 g/dL (33.0-37.0); Mean Corpuscular Hgb 28.5 pg (27.0-31.0); Mean Corpuscular Volume 86.6 fL (80.0-94.0); Mean Platelet Volume 9.4 fL (7.4-10.4); Platelet Count 371 10^3/uL (130-400); Red Blood Cell Count 3.96 10^6/uL (4.70-6.10); White Blood Cell Count 17.2 10^3/uL (4.8-10.8)
[2024-03-16 05:59] LABS: Blood Urea Nitrogen 34 mg/dl (9-20); Calcium 8.6 mg/dl (8.4-10.2); Carbon Dioxide 26 mmol/L (22-30); Chloride 99 mmol/L (98-107); Estimated Creatinine Clearance 64 ml/min; Glucose 89 mg/dl (70-99); Potassium 4.6 mmol/L (3.5-5.1); Sodium 133 mmol/L (135-145); eGFR > 60.00
[2024-03-16 06:08] LABS: Procalcitonin < 0.05 ng/ml (0.0-0.25)
[2024-03-16] MEDS: SPIRIVA RESPIMAT 2.5 MCG INH (08:10)
[2024-03-16] MEDS: PULMICORT INH (08:10)
[2024-03-16] MEDS: ASPIR LOW (ENTERIC COATED) 81 MG PO (08:41)
[2024-03-16] MEDS: FEOSOL 325 MG PO (08:41)
[2024-03-16] MEDS: PROTONIX 40 MG PO (08:41)
[2024-03-16] MEDS: SENOKOT-S 1 TABLET PO (08:42)
[2024-03-16] MEDS: BIAXIN 500 MG PO (08:42)
[2024-03-16] MEDS: KCL 20 MEQ PO (08:42)
[2024-03-16] MEDS: COZAAR PO (09:00)
--- NOTE | 2024-03-16 09:04 | W.PN.PUL3 ---
Today's Communication / Plan
-
Non-surgical candidate per team, medical treatment
Will need pulmonary OP FU, can see our office as his prior pulmonary office has closed
Information left in chart
Discharge planning per team
We will sign off at this time, please call with questions
Assessment
-
74-year-old male tobacco smoker with a past medical history of COPD/emphysema, depression/bipolar disorder, hypertension, multivessel CAD (previously refused CABG), chronic HFrEF, BPH, [place] and TAA who presents as a transfer from outside hospital
([facility]) for left heart cath and evaluation for CABG. He was admitted to [facility] on 03/07/2024 with acute on chronic anemia and melena with initial Hb of 6.9 requiring transfusion. EGD done on 03/09 showed a large duodenal ulcer and GI approved use of ASA
for cardiac issues. Patient also endorsed worsening TRUONG over the last 1 month. Echo done on 03/08/2024 shows reduced LV systolic function with LVEF 25-30%, moderate , mild�moderate MR and moderate TR. Patient was transferred here to [place] [facility] for LHC and evaluation from CT surgery for CABG. Given his history of COPD with tobacco use disorder, pulmonary now consulted for optimization prior to operation as well as risk stratification.
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
HFrEF, chronic back pain, history of kidney stones, BPH, anemia, hard of hearing, anxiety with history of bipolar disorder, history of self-harm in the past, AAA, history of pneumonia with parapneumonic effusion s/p VATS with decortication (07/2023)
Impression:
#Multivessel CAD
#Acute upper gastrointestinal hemorrhage due to duodenal ulcer (via EGD from [facility])
#Acute blood loss anemia due to above
#(+) H. pylori infection seen on biopsy during recent EGD
#Severe-very severe COPD/emphysema with chronic cough
#Chronic HFrEF/ICM
#Restrictive lung defect (T%; VC: 65% via PFT from today)
#Tobacco use disorder
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
Plan:
-Spirometry today shows a FEV1 of 0.95 L / 30% predicted, which is a severe/very severe obstructive lung defect; there is also a moderate restrictive lung defect seen.
- Apparently patient was on budesonide 0.5mg BID, Spiriva and albuterol as needed and finished a course of prednisone recently.
- Continue with Spiriva + budesonide 0.5mg BID while he remains inpatient plus nebulized albuterol as needed --> on discharge can give trelegy vs Breztri, depending on affordability
- Trend Hb and transfuse if needed to keep Hb>8g/dL, plt>50k (given upcoming surgery)
- Maintain SpO2 >88-94% with supplemental O2 as needed
- Incentive spirometer encouraged
- Flutter valve for phlegm expectoration
Although patient has significant pulmonary history and has significant dyspnea with activities, his shortness of breath is currently at his baseline and he is not currently having a COPD exacerbation.
He remains at high risk for a high risk procedure.
ARISCAT score: 51 - he has a 42.1% risk of in-hospital post-op pulmonary complications (composite including respiratory failure, respiratory infection, pleural effusion, atelectasis, pneumothorax, bronchospasm, aspiration pneumonitis).
- Continue inhalers and on AM of procedure give pt an albuterol nebulized treatment. Would Tx with decadron 10mg IVP x1 pre-op as well. Use low tidal volume strategy with 4-6cc/kg of IBW, titrate Fio2 to maintain SpO2>88%, and maintain plateau
pressure <30. Early postoperative ambulation, as tolerated, with postoperative incentive spirometry use q1hr while awake.
- Replete electrolytes with K>4, Mg>2
- Maintain euglycemia with goal BG >100 and <180
- Continue ABx to treat H. pylori
- GI consulted - recs appreciated
- DVT ppx
Pulmonary service will continue to follow along. Patient is being moved to the IVU today.
Further evaluation by cardiothoracic surgery deemed non-surgical candidate, recommend to be treated medically.
Data:
CT Chest 03-15-2024:
Mild aneurysmal dilatation of the ascending thoracic aorta at approximately 4.2 cm. Prominent atherosclerotic calcifications throughout the thoracic aorta most prominently involving the aortic arch and descending thoracic aorta.
Large dense area of consolidation with air bronchograms in the right lower lobe and smaller area in the right middle lobe suspicious for pneumonia.
Approximate 1.4 cm nonspecific superior precarinal mediastinal lymph node. Mireille significantly limited without intravenous contrast.
Total time spent today was 35 minutes for this encounter. Time includes reviewing laboratory test/imaging results, reviewing pertinent medical records, obtaining and reviewing medical history, performing an appropriate exam, ordering medications,
tests and procedures. Time also includes documentation of this encounter, coordinating patient care and communicating with other healthcare professionals. Total time does not include separately billed tests performed on this date of service.
Subjective Data
-
Date of Service:
Date of Service: March 16, 2024
Chief Complaint: Pulmonary Follow Up
Subjective:
no acute events ON, remains on room air
sleeping on my arrival, no complaints
Objective Data
Data Reviewed
Vital Signs / I&O / Oxygen:
Vital Signs
Temp Pulse Resp BP Pulse Ox
97.6 F 74 20 97/54 90
03/16/24 07:55 03/16/24 08:15 03/16/24 07:55 03/16/24 07:57 03/16/24 08:52
Intake and Output
03/15/24 03/16/24 03/17/24
06:59 06:59 06:59
Intake Total 1000 / 1000
Output Total 300 / 600 1900 / 1900
Balance 700 / 400 -1900 / -1900
SaO2 90
Physical Exam
General: Respiratory Distress (negative) and Comfortable
HEENT: Normocephalic and Anicteric
Cardiovascular: S1-S2, Regular Rhythm, Peripheral Edema (+1 lower extremity edema bilaterally) and Other (Distant heart sounds)
Respiratory: Wheeze (negative), Crackles (negative), Rhonchi (negative) and Other (Reduced breath sounds bilaterally)
GI: Soft, Non Distended, Non Tender and Normal Bowel Sounds
Neurology: Awake, Alert, Oriented and AO x 3
Skin: Warm, Dry and Cyanosis (negative)
Labs/Micro/Reports
Lab Data
03/16/24 05:17
03/16/24 05:17
[2024-03-16 10:26] LABS: COVID-19 Antigen Negative (Negative)
--- NOTE | 2024-03-16 11:48 | CM ---
spoke with pt in room, PT recomm SNF, pt agreeable. hewould like 1- [facility], 2- [facility], 3- [facility], 4- [facility]- [facility] faxed referrals. await bed avail. will need insurance auth
--- NOTE | 2024-03-16 11:57 | W.PN.CARDCBS ---
Addendum entered and electronically signed by Pedro Hernandez MD 03/16/24 12:38:
I saw and examined the patient.
The Catering Sales Manager's note was reviewed and I agree with the note.
Comment: Briefly, 74-year-old man past medical history of severe multivessel CAD and ischemic cardiomyopathy with EF 30 to 35% who was transferred down from [place] for left heart catheterization and CT surgery evaluation
He has a complicated past medical history including recent GI bleed
Unfortunately he is not thought to be a surgical candidate at this time
Plan for medical management
Continue aspirin and high intensity statin, would hold off on Plavix at this time given recent GI bleed
Unfortunately antianginals are limited by hypotension
Will trial low-dose of carvedilol and monitor blood pressure closely. Ranexa would be a good option however it interacts with his antibiotic.
Original Note:
Today's Communication / Plan
-
difficult situation
hypotension limiting GDMT
remains with chest discomfort
unable to add ranexa due to interaction with biaxin
Impression / Plan
-
PCP: Estela Chi DO
Cardiology: Micheal Dasilva DO
IMPRESSION/PLAN:
Transferred from [facility] to for cath 03/14/24
Admitted to [facility] with anemia and melena 03/07/24
CAD
previously diagnosed MV CAD, patient declined CABG 2020
severe MV CAD that is overall similar to 2020 by cath 03/14/24
ICM EF 25-30% by echo at [facility] 03/08/24
Mild /mod AI
UGIB
s/p 3 units PRBCs, EGD with large duodenal ulcer at [facility] 03/09/24
Severe COPD and emphysema
Smoker
s/p VATS decortication 07/2023
Echo 03/08/24: [facility] study, EF 25-30%, mild-mod MR, mod TR, mod but likely underestimated d/t dec LVEF, PG/MG 12/07, JASEN 1.27cm2
Plan:
-Patient was admitted to [facility] 03/07/24 with melanotic stools and Hgb as low as 6.9. He was given 3 units PRBCs. He had a large duodenal ulcer on EGD. Patient with h/o MV CAD and he declined offer of CABG in 2020. While in [facility] he complained of
increased TRUONG, but Troponin and echo stable. Patient transferred to 03/14/24 for cath. He had cardiac cath 03/14/24 that again showed MV CAD and patient now agreeable to CT surgical evaluation.
-difficult situation. he is felt to be a prohibitive surgical risk for CABG +/- AVR. plan for medical therapy at this time.
-Presently with soft BP. Coreg and Cozaar held this morning.
-Reports continued chest discomfort rated a 5 out of 10. Worse after coughing, across his chest. Repeat EKG now. Supplemental oxygen applied. Unable to take Ranexa as on Biaxin for duodenal ulcer/H. pylori
-Continue aspirin. Hemoglobin stable at 11.3
-Will need outpatient GI followup at [facility] with Dr. Rocio Ervin in 6 weeks and repeat stool antigen in 3-4 months to check for H. Pylori eradication
-PCWP 19 and CI 2.5 at cath 03/14/24. [facility] dose of Lasix 20 mg every 48 hours has been continued.
-EF 25% which is apparently chronic. ? consider candidacy for ICD
-pulm following for RLL consolidation. procal negative
-His social situation is such that he has no license, no car, and gets around on an electric tricycle, has no friends/family for support or to help drive him to appointments/studies. there is concern with compliance moving forward.
-d/w nursing, hospitalist
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
Subjective
Date of Service: March 16, 2024
reports discomfort across his chest, worse with coughing, rates 5/10
Objective
Labs:
03/16/24 05:17
03/16/24 05:17
Labs
Hgb 11.3 g/dL (13.0-18.0) L 03/16/24 05:17
Hct 34.3 % (39.0-52.0) L 03/16/24 05:17
Plt Count 371 10^3/uL (130-400) 03/16/24 05:17
PT 13.8 Sec (11.4-14.6) 03/15/24 07:47
INR 1.06 03/15/24 07:47
APTT 26.7 Sec (23.4-35.0) 03/15/24 07:47
Sodium 133 mmol/L (135-145) L 03/16/24 05:17
Potassium 4.6 mmol/L (3.5-5.1) 03/16/24 05:17
BUN 34 mg/dl (9-20) H 03/16/24 05:17
Creatinine 0.9 mg/dL (0.7-1.3) 03/16/24 05:17
Glucose 89 mg/dl (70-99) 03/16/24 05:17
Troponins
03/15/24 03/16/24
12:39 05:17
Troponin I 0.111 H* 0.090 H*
Vital Signs and I&O:
Vital Signs
Temp Pulse Resp BP Pulse Ox
97.7 F 74 20 97/54 95
03/16/24 11:30 03/16/24 08:15 03/16/24 11:30 03/16/24 07:57 03/16/24 11:30
Vital Signs
Temp Pulse Resp BP Pulse Ox
97.7 F 74 20 97/54 95
03/16/24 11:30 03/16/24 08:15 03/16/24 11:30 03/16/24 07:57 03/16/24 11:30
Intake & Output
03/14/24 03/15/24 03/16/24 03/17/24
07:59 07:59 07:59 07:59
Intake Total 1000 / 1000
Output Total 600 / 600 1600 / 1600
Balance 400 / 400 -1600 / -1600
Physical Exam
Physical Exam
GEN: No distress, awake, alert, oriented x3. on supp O2. LYTTON
HEENT: supple, anicteric, mmm, eomi
LUNGS: CTA B/L, no wheezes/rales
CV: Reg, S1/S2, 2/6 syst LSB murmur
EXT: No cyanosis, clubbing, edema
NEURO: Gross non-focal
SKIN: Warm, pink, dry. No rash
[2024-03-16] MEDS: COREG 3.125 MG PO (12:42)
--- NOTE | 2024-03-16 13:42 | W.DS.TRANS ---
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
-
Discharge Instructions:
Discharge Diagnosis/Procedures Multivessel CAD
Ischemic cardiomyopathy
Chronic CHF reduced EF
Severe COPD/emphysema
Tobacco use disorder, ongoing
Upper gastrointestinal hemorrhage secondary to
duodenal ulcer
Acute blood loss anemia requiring transfusion
Essential hypertension
Dyslipidemia
BPH.
Depression
Diet Low Cholesterol,2 Gram Sodium
Blood Work BMP in 1 week
Specialty Instructions Weigh Daily
Instructions: *PCP/Other Fish Smoker Heart Failure Instructions
Stand-Alone Forms: DC Instructions- Cath/EP Lab
Changes to Home Medications: Yes
Discharge Medications:
DC Medications w/original date entered in [employer]
atorvastatin 40 mg tablet 40 mg PO QPM #1 tab 01/14/21
carvedilol 3.125 mg tablet 3.125 mg PO BID Heart Failure 01/14/21
quetiapine 200 mg tablet 200 mg PO HS Mental Health/Anxiety 01/14/21
albuterol sulfate 90 mcg/actuation aerosol inhaler 2 puff inhalation Q6H PRN wheezing 03/14/24
aspirin 81 mg tablet 81 mg PO DAILY Blood Clot Prevention/Tx 03/14/24
tamsulosin 0.4 mg capsule 0.4 mg PO HS Urinary Issue 03/14/24
tiotropium bromide 18 mcg capsule with inhalation device 1 cap inhalation DAILY Lung/Breathing Issues 03/14/24
amoxicillin 500 mg capsule 1,000 mg (2 x 500 mg) PO Q12H #28 caps 03/16/24
budesonide 0.5 mg/2 mL suspension for nebulization 0.5 mg (2 mL) inhalation R BID #1 mL 03/16/24
clarithromycin 500 mg tablet 500 mg PO BID #28 tabs 03/16/24
ferrous sulfate 325 mg (65 mg iron) tablet (FeroSul) 325 mg PO DAILY #30 tabs 03/16/24
furosemide 20 mg tablet 20 mg PO Q48H #30 tabs 03/16/24
losartan 25 mg tablet 25 mg PO DAILY #30 tabs 03/16/24
nicotine 14 mg/24 hr daily transdermal patch 14 mg transdermal DAILY #14 ea 03/16/24
pantoprazole 40 mg tablet,delayed release 40 mg PO BID #60 tabs 03/16/24
potassium chloride 20 mEq tablet,extended release(part/cryst) 20 meq PO DAILY #30 tabs 03/16/24
sennosides 8.6 mg-docusate sodium 50 mg tablet (Stool Softener-Stimulant Laxative) 1 tab PO BID #30 tabs 03/16/24
Home Medication Changes
All of above
Pending Results: No
--- NOTE | 2024-03-16 13:49 | PTCARENOTE ---
Pt reported 5/10 chest pain at 11:05 after working with OT therapist, BP 94/55. Pt placed on oxygen at 2L, MACARIO Leija notified. Pt went to sleep for an hour. ECG done . Pt stated it was a 4/10 at 12:25, BP up to 120/56. Pt given coreg. dose
at this time. Pt then stated his chest pain was worse with a deep breath. notified and RN informed 'this was chronic and pleuritic'.
--- NOTE | 2024-03-16 18:03 | PTCARENOTE ---
Pt seen by MACARIO Leija and . Pt eating 100% of his meals, denies further discomfort. Report called to Cedric Pederson @16:05. Telemetry and IV device removed. Pt left via [facility] with all his belongings including his
glasses adn hearing aide.
== END 2024-03-16 17:50 | DRG 287 ==
LOC: IVU 10:31
PROVIDERS: Clinical Nurse Specialist Acute Care; Internal Medicine Cardiovascular Disease; Nurse Practitioner; Physician Assistant Medical; ADMITTING PHYSICIAN Internal Medicine Interventional Cardiology; ATTENDING PHYSICIAN Internal Medicine; CONSULT PHYSICIAN Internal Medicine Critical Care Medicine; CONSULT PHYSICIAN Thoracic Surgery (Cardiothoracic Vascular Surgery); FAMILY PHYSICIAN Family Medicine
PROC: B2111ZZ Fluoroscopy of Multiple Coronary Arteries using Low Osmolar Contrast (ICD-10-PCS; 2024-03-14)
PROC: 4A023N8 Measurement of Cardiac Sampling and Pressure, Bilateral, Percutaneous Approach (ICD-10-PCS; 2024-03-14)
PROC: B2151ZZ Fluoroscopy of Left Heart using Low Osmolar Contrast (ICD-10-PCS; 2024-03-14)
DX: I25.119 Atherosclerotic heart disease of native coronary artery with unspecified angina pectoris (principal); D62 Acute posthemorrhagic anemia; I50.22 Chronic systolic (congestive) heart failure; I25.5 Ischemic cardiomyopathy; B96.81 Helicobacter pylori [H. pylori] as the cause of diseases classified elsewhere; F17.210 Nicotine dependence, cigarettes, uncomplicated; I11.0 Hypertensive heart disease with heart failure; N40.0 Benign prostatic hyperplasia without lower urinary tract symptoms; E78.5 Hyperlipidemia, unspecified; I35.1 Nonrheumatic aortic (valve) insufficiency; M17.11 Unilateral primary osteoarthritis, right knee; F31.9 Bipolar disorder, unspecified; I27.20 Pulmonary hypertension, unspecified; K08.409 Partial loss of teeth, unspecified cause, unspecified class; K08.89 Other specified disorders of teeth and supporting structures; I71.21 Aneurysm of the ascending aorta, without rupture; G89.29 Other chronic pain; K26.9 Duodenal ulcer, unspecified as acute or chronic, without hemorrhage or perforation; H91.90 Unspecified hearing loss, unspecified ear; F41.9 Anxiety disorder, unspecified; K52.831 Collagenous colitis; F10.91 Alcohol use, unspecified, in remission; M54.9 Dorsalgia, unspecified; J43.9 Emphysema, unspecified; Z60.8 Other problems related to social environment; Z91.199 Patient's noncompliance with other medical treatment and regimen due to unspecified reason; Z79.82 Long term (current) use of aspirin; Z11.52 Encounter for screening for COVID-19; I25.2 Old myocardial infarction; Z82.49 Family history of ischemic heart disease and other diseases of the circulatory system; Z80.1 Family history of malignant neoplasm of trachea, bronchus and lung; Z87.19 Personal history of other diseases of the digestive system; Z91.52 Personal history of nonsuicidal self-harm; Z87.01 Personal history of pneumonia (recurrent); Z87.442 Personal history of urinary calculi
CPT/HCPCS: 94727; 94729; 36600; 70355; 71046; 71250; 80048; 80053; 80061; 82248; 82805; 83036; 83880; 84145; 84484; 85027; 85347; 85610; 85730; 87070; 87811; 93005; 93460; 93880; 94010; 94640; 97163; 97166; 99406; C1769; C1894; Q9967